=== PATIENT | female | born 1990 | race Caucasian/White ===

== ENCOUNTER 2022-03-30 11:09 | Emergency (ER) | payer BC, OTHER ==
[~2022-03-30] VITALS: Ht 165.1 cm; Wt 58.1 kg
[2022-03-30 11:22] VITALS: BP 156/95
--- NOTE | 2022-03-30 11:36 | NUR ---
URINE COLLECTED AND SENT TO LAB
[2022-03-30] MEDS ORDERED: CODE1CAP32 PO (13:01)
--- NOTE | 2022-03-30 13:08 | NUR ---
Patient discharged to home in stable condition. Written and verbal after care instructions given. Patient verbalizes understanding of instruction.
== END 2022-03-30 13:09 | disposition home or self-care (01) ==
LOC: ER 11:13
DX: R51.9 Headache, unspecified (principal); F41.9 Anxiety disorder, unspecified
CPT/HCPCS: 70450-TC; 84703-TC